=== PATIENT | female | born 2000 | race Caucasian/White ===

== ENCOUNTER 2020-10-15 19:22 | Emergency (ER) | payer BC, OTHER ==
[2020-10-15 20:06] VITALS: BP 121/66
[2020-10-15 20:24] LABS: BILIRUBIN,URINE NEGATIVE (NEGATIVE); GLUCOSE, URINE (UA) NEGATIVE (NEGATIVE); KETONES,URINE (UA) NEGATIVE (NEGATIVE); LEUKOCYTE ESTERASE, URINE TRACE (NEGATIVE); NITRITE,URINE NEGATIVE (NEGATIVE); OCCULT BLOOD,URINE NEGATIVE (NEGATIVE); PROTEIN,URINE NEGATIVE (NEGATIVE); UROBILINOGEN,URINE 0.2 (NORMAL) E.U./dL (NORMAL)
[2020-10-15 20:26] LABS: CLARITY,URINE CLEAR (CLEAR); HCG UR QUAL NEGATIVE
[2020-10-15 20:29] LABS: BACTERIA,URINE Moderate /HPF (None Seen); RBC,URINE 0-5 /HPF (0-5); SQUAMOUS EPITHELIAL CELL,UR FEW Squamous (<= Few)
[2020-10-15 20:30] LABS: AMORPHOUS SEDIMENT,UR Moderate /LPF; MUCUS,URINE Few Strands
--- NOTE | 2020-10-15 21:20 | ED Physician Documentation ---
PD HPI FEMALE - Stated complaint Stated Complaint: FEMALE - Chief complaint Chief Complaint: Abd Pain - History obtained from History obtained from: Patient - History of Present Illness Timing - onset: How many days ago (3-4) Timing - details: Gradual onset Pain level max: 0 Pain level max: 0 Associated symptoms: Dysuria. No: Fever, Abdominal pain, Pelvic pain, Vaginal pain, Vaginal bleeding, Vaginal discharge, Genital sore/lesion, Urinary frequency Contributing factors: No: Recently seen: Not recently seen - Additional information Additional information: Patient complains of 3 to 4 days vaginal vaginal itching. She has used Vagisil without relief. she denies vaginal discharge. She denies having any pain. She is sexually active with one partner. Review of Systems Constitutional: denies: Fever GI: denies: Abdominal Pain : reports: Dysuria. denies: Frequency, Discharge, Vaginal bleeding, Now p regnant EGA PD PAST MEDICAL HISTORY - Past Medical History Past Medical History: No - Past Surgical History Past Surgical History: No - Present Medications Home Medications: Ambulatory Orders Medication Instructions Recorded Confirmed Nitrofurantoin Monohyd/M-Cryst 100 mg PO BID #9 cap 10/15/20 [Macrobid 100 mg Capsule] - Allergies Allergies/Adverse Reactions: Allergies Allergy/AdvReac Type Severity Reaction Status Date / Time No Known Drug Allergies Allergy Verified 10/15/20 20:07 PD ED PE NORMAL - Vitals Vital signs reviewed: Yes - General General: Alert and oriented X 3, No acute distress, Well developed/nourished - Abdomen Abdomen: Soft, Non tender - Back Back: No CVA TTP Results - Vitals Vitals: Oxygen O2 Source Room air - Labs Labs: Microbiology 10/15/20 20:18 Urine Culture - Preliminary Urine,Clean Catch CULTURE IN PROGRESS. RESULTS TO FOLLOW. 10/15/20 22:00 Wet Prep - Final Vaginal Laboratory Tests 10/15/20 10/15/20 10/15/20 20:18 20:18 22:00 Urine Color YELLOW Urine Clarity CLEAR Urine pH 7.0 Ur Specific [place] 1.020 Urine Protein NEGATIVE Urine Glucose (UA) NEGATIVE Urine Ketones NEGATIVE Urine Occult Blood NEGATIVE Urine Nitrite NEGATIVE Urine Bilirubin NEGATIVE Urine Urobilinogen 0.2 (NORMAL) Ur Leukocyte Esterase TRACE H Urine RBC 0-5 Urine WBC 6-10 H Ur Squamous Epith Cells FEW Squamous Amorphous Sediment Moderate Urine Bacteria Moderate H Urine Mucus Few Strands Ur Microscopic Review INDICATED Urine Culture Comments INDICATED Urine HCG, Qual NEGATIVE Chlam trachomat DNA PCR NEGATIVE N.gonorrhoeae DNA (PCR) NEGATIVE T. vaginalis (PCR) NEGATIVE PD MEDICAL DECISION MAKING - ED course Complexity details: considered differential, d/w patient ED course: patient complains of 3 to 4 days of vaginal itching. She says she has no discharge, but wonders if this might represent a yeast infection. lack of discharge makes this unlikely, but still a reasonable possibility, and patient would like to be treated empirically. single dose diflucan is given prior to discharge from the emergency department. Her urinalysis suggests urinary tract infection. Macrobid given in emergency department and prescription for same prov sharla. Departure - Departure Disposition: 01 Home, Self Care Clinical Impression: Urinary tract infection Qualifiers: Urinary tract infection type: acute cystitis Hematuria presence: without hematuria Qualified Code(s): N30.00 - Acute cystitis without hematuria Condition: Good Instructions: ED UTI Cystitis Female Prescriptions: Nitrofurantoin Monohyd/M-Cryst [Macrobid 100 mg Capsule] 100 mg PO BID #9 cap Discharge Date/Time: 10/15/20 22:14
[2020-10-15] MEDS ORDERED: NITROFURANTOIN MACRO 100 MG CAPSULE PO STA (21:45)
[2020-10-15] MEDS ORDERED: FLUCONAZOLE 100 MG TABLET PO STA (21:58)
[2020-10-16 02:31] LABS: CHLAMYDIA TRACHOMATIS DNA NEGATIVE (NEGATIVE); NEISSERIA GONORRHOEAE DNA NEGATIVE (NEGATIVE); TRICHOMONAS VAGINALIS DNA NEGATIVE (NEGATIVE)
== END 2020-10-15 22:14 | disposition home or self-care (01) ==
LOC: ED 19:22
DX: N30.00 Acute cystitis without hematuria (principal); L29.2 Pruritus vulvae
CPT/HCPCS: 81001; 81025; 87086; 87210; 87491; 87591; 87661; 99283; A9270; 81003